=== PATIENT | male | born 1945 | race Caucasian/White ===

== ENCOUNTER 2016-11-22 23:58 | Observation (INO) | payer MEDICARE ==
[~2016-11-22] VITALS: Ht 167.6 cm; Wt 86.5 kg
[2016-11-23] VITALS (15 sets, daily range): BP systolic 112–168; BP diastolic 58–94; PULSE 50–68; RESP 17–18; TEMP 98–98.8; O2SAT 97–99
[2016-11-23] MEDS ORDERED: SODIUM CHLORIDE 0.9% FLUSH 10 ML FLUSH IVF PRN ×2 (00:30→03:15)
[2016-11-23] MEDS ORDERED: SODIUM CHLOR 0.9% 1000 ML INJ 1,000 ML IV SCH (00:30)
[2016-11-23] MEDS ORDERED: ASPIRIN 81 MG CHEW TAB PO ONE (00:30)
[2016-11-23] MEDS: NITROGLYCERIN 0.4 MG SL 25 TABS/BTL SL SCH ×2 (00:31→00:36)
[2016-11-23 00:43] LABS: AUTOMATED NEUTROPHIL # 5.9 TH/MM3 (1.8-7.7); BASOPHIL % 0.4 % (0.0-2.0); EOSINOPHIL # 0.2 TH/MM3 (0-0.4); EOSINOPHIL % 2.5 % (0.0-4.0); HEMATOCRIT 42.7 % (39.0-51.0); HEMO FLAGS DIFF FINAL; LYMPH % 24.9 % (9.0-44.0); LYMPHOCYTE # 2.3 TH/MM3 (1.0-4.8); MEAN CELL VOLUME 87.3 FL (80.0-100.0); MEAN CORPUSCULAR HEMOGLOBIN 28.7 PG (27.0-34.0); MEAN CORPUSCULAR HGB CONC 32.8 % (32.0-36.0); MONO % 8.7 % (0.0-8.0); NEUT % 63.5 % (16.0-70.0); PLATELET COUNT 203 TH/MM3 (150-450); WHITE BLOOD COUNT 9.2 TH/MM3 (4.0-11.0)
--- NOTE | 2016-11-23 00:51 | PD ---
HPI Chief Complaint: Chest Pain Time Seen by Provider: 00:21 Travel History International Travel<30 days: Yes (today) Contact w/Intl Traveler<30days: Yes (today) Name of Country Traveled to: [place] Traveled to known affect area: Yes ([place]) History of Present Illness HPI 71-year-old male presents to the emergency department by private transportation the care of his daughter for evaluation of chest pain and epigastric pain. Patient has history of CAD with previous stent placement. 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 Patient is visiting here for one week with his daughter. Patient also has history of hypertension and diabetes. Patient rates pain as 7/10 in intensity. Patient reportedly took 3 sublingual nitroglycerin at home without relief. Patient last took aspirin in the morning 325 mg reportedly. Patient did not take aspirin just prior to arrival to the emergency department. Patient denies any abdominal surgery. Patient has undergone cardiac catheterization in the past. Patient is also had ultrasound of the abdominal aorta that was reportedly normal and has undergone upper endoscopy which is also reportedly normal. Pain does not radiate to the neck jaw back shoulder or arms. No reported associated symptoms of shortness of breath sweats nausea or vomiting. Patient is unable to identify exacerbating or alleviating factors. Patient initially felt like he had over eaten. Patient does not report any referred pain to the lower extremities and no lower extremity or upper extremity numbness tingling weakness swelling and no pleuritic pain. No personal history of family history of clotting disorder/DVT/PE. PFSH Past Medical History Narrative Medical CAD hypertension diabetes cardiac catheterization nursing notes reviewed no tobacco use Social History Tobacco Use: No Allergies-Medications (Allergen,Severity, Reaction): Coded Allergies: Penicillin (Verified Allergy, Severe, Itching, 11/23/16) Reported Meds & Prescriptions Reported Meds & Active Scripts Active Reported Nitrostat SL (Nitroglycerin) 0.4 Mg Subl 0.4 Mg SL DIRECTED PRN 1 tablet under the tongue as needed for chest pain. Repeat every 5 minutes for a total of 3 DOSES or call 911 if NO relief. Metoprolol Succinate ER 24 HR (Metoprolol Succinate) 25 Mg Tab 25 Mg PO DAILY Isosorbide Mononitrate ER (Isosorbide Mononitrate) 30 Mg Dong 30 Mg PO DAILY Clopidogrel (Clopidogrel Bisulfate) 75 Mg Tab 75 Mg PO DAILY Atorvastatin (Atorvastatin Calcium) 80 Mg Tab 80 Mg PO HS Aspirin 325 Mg Tab 325 Mg PO DAILY Metformin (Metformin HCl) 500 Mg Tab 500 Mg PO DAILY With a meal Doxazosin (Doxazosin Mesylate) 2 Mg Tab 2 Mg PO DAILY Losartan-Hydrochlorothiazide 100-25 Mg Tab 1 Tab PO DAILY Review of Systems Except as stated in HPI: all other systems reviewed are Neg Physical Exam Narrative GENERAL: Well-developed well-nourished male in no acute distress no respiratory distress SKIN: Warm and dry. HEAD: Atraumatic. Normocephalic. EYES: Pupils equal and round. No scleral icterus. No injection or drainage. ENT: No nasal bleeding or discharge. Mucous membranes pink and moist. NECK: Trachea midline. No JVD. CARDIOVASCULAR: Regular rate and rhythm. Radial and dorsalis pedis pulses 2+ to palpation. RESPIRATORY: No accessory muscle use. Clear to auscultation. Breath sounds equal bilaterally. GASTROINTESTINAL: Abdomen soft, non-tender, nondistended. Hepatic and splenic margins not palpable. MUSCULOSKELETAL: Extremities without clubbing, cyanosis, or edema. No obvious deformities. NEUROLOGICAL: Awake and alert. No obvious cranial nerve deficits. Motor grossly within normal limits. Five out of 5 muscle strength in the arms and legs. Normal speech. PSYCHIATRIC: Appropriate mood and affect; insight and judgment normal. Data Data Last Documented VS Vital Signs Date Time Temp Pulse Resp B/P Pulse Ox O2 Delivery O2 Flow Rate FiO2 11/23/16 02:28 58 18 159/80 99 Room Air 11/23/16 00:15 98.0 Orders Electrocardiogram (11/23/16 00:21) Basic Metabolic Panel (Bmp) (11/23/16 00:21) Ckmb (Isoenzyme) Profile (11/23/16 00:21) Complete Blood Count With Diff (11/23/16 00:21) Magnesium (Mg) (11/23/16 00:21) Prothrombin Time / Inr (Pt) (11/23/16 00:21) Act Partial Throm Time (Ptt) (11/23/16 00:21) Troponin I (11/23/16 00:21) Lipase (11/23/16 00:21) Chest, Single Ap (11/23/16 00:21) Ecg Monitoring (11/23/16 00:21) Bilateral Bp Monitoring (11/23/16 00:21) Iv Access Insert/Monitor (11/23/16 00:21) Oximetry (11/23/16 00:21) Oxygen Administration (11/23/16 00:21) Aspirin Chew (Aspirin Chew) (11/23/16 00:30) Sodium Chloride 0.9% Flush (Ns Flush) (11/23/16 00:30) Nitroglycerin Sl (Nitrostat Sl) (11/23/16 00:30) Sodium Chlor 0.9% 1000 Ml Inj (Ns 1000 M (11/23/16 00:30) CKMB (11/23/16 00:20) CKMB% (11/23/16 00:20) Ondansetron Inj (Zofran Inj) (11/23/16 01:15) Hydromorphone Pf Inj (Dilaudid Pf Inj) (11/23/16 01:15) Cta Thor Abd Aorta W Iv C W3d (11/23/16 ) Iohexol 350 Inj (Omnipaque 350 Inj) (11/23/16 02:27) Admit Order (Ed Use Only) (11/23/16 ) ^ Saline Lock (11/23/16 03:06) Resp Oxygen Darren C Titrat 1-4 L (11/23/16 ) ^ Notify Dr: Other (11/23/16 03:06) Sodium Chloride 0.9% Flush (Ns Flush) (11/23/16 09:00) Sodium Chloride 0.9% Flush (Ns Flush) (11/23/16 03:15) Place In Observation (11/23/16 03:06) Activity Bed Rest With Brp (11/23/16 03:06) Vital Signs (Adult) Q4H (11/23/16 03:06) Cardiac Rhythm .As Directed (11/23/16 03:06) ^ Notify Dr: Other .PRN (11/23/16 03:06) ^ Notify Dr. Parameters (11/23/16 03:06) Resp Oxygen Nasal Cannula (11/23/16 ) Diet Npo (11/23/16 Breakfast) Ckmb (Isoenzyme) Profile (11/23/16 03:06) Ckmb (Isoenzyme) Profile (11/23/16 06:06) Troponin I (11/23/16 03:06) Troponin I (11/23/16 06:06) Electrocardiogram (11/23/16 03:06) Electrocardiogram (11/23/16 06:06) ^ Obtain (11/23/16 03:06) Sodium Chloride 0.9% Flush (Ns Flush) (11/23/16 03:15) Sodium Chloride 0.9% Flush (Ns Flush) (11/23/16 09:00) Cap Lining Machine Operator / Telemetry [id number].[id number] (11/23/16 03:06) Potassium Chloride (Kcl) (11/23/16 03:15) CKMB (11/23/16 03:27) CKMB% (11/23/16 03:27) Labs Laboratory Tests Test 11/23/16 00:20 White Blood Count 9.2 TH/MM3 Red Blood Count 4.90 MIL/MM3 Hemoglobin 14.0 GM/DL Hematocrit 42.7 % Mean Corpuscular Volume 87.3 FL Mean Corpuscular Hemoglobin 28.7 PG Mean Corpuscular Hemoglobin 32.8 % Concent Red Cell Distribution Width 13.0 % Platelet Count 203 TH/MM3 Mean Platelet Volume 8.0 FL Neutrophils (%) (Auto) 63.5 % Lymphocytes (%) (Auto) 24.9 % Monocytes (%) (Auto) 8.7 % Eosinophils (%) (Auto) 2.5 % Basophils (%) (Auto) 0.4 % Neutrophils # (Auto) 5.9 TH/MM3 Lymphocytes # (Auto) 2.3 TH/MM3 Monocytes # (Auto) 0.8 TH/MM3 Eosinophils # (Auto) 0.2 TH/MM3 Basophils # (Auto) 0.0 TH/MM3 CBC Comment DIFF FINAL Differential Comment Prothrombin Time 10.4 SEC Prothromb Time International 0.9 RATIO Ratio Activated Partial 26.2 SEC Thromboplast Time Sodium Level 140 MEQ/L Potassium Level 3.2 MEQ/L Chloride Level 99 MEQ/L Carbon Dioxide Level 33.2 MEQ/L Anion Gap 8 MEQ/L Blood Urea Nitrogen 20 MG/DL Creatinine 1.40 MG/DL Estimat Glomerular Filtration 50 ML/MIN Rate Random Glucose 118 MG/DL Calcium Level 9.0 MG/DL Magnesium Level 2.1 MG/DL Total Creatine Kinase 207 U/L Creatine Kinase MB 4.0 NG/ML Troponin I LESS THAN 0.02 NG/ML Lipase 241 U/L MDM Medical Decision Making Medical Screen Exam Complete: Yes Emergency Medical Condition: Yes Medical Record Reviewed: Yes Interpretation(s) EKG: Sinus bradycardia rate [address] elevation or injury pattern change noted Q wave noted inferiorly in lead 3 and aVF CBC & BMP Diagram 11/23/16 00:20 Last Impressions Chest X-Ray 11/23/16 0021 Signed Impressions: Service Date/Time: Saturday, November 23, 2016 00:51 - CONCLUSION: No acute cardiopulmonary abnormality is identified. Tony Fletcher MD troponin I: less than 0.02, not elevated; CK: 207, not elevatedMB% 1.9% not elevated coags: wnl Differential Diagnosis Chest pain, ACS, CT, PE, aortic dissection, pneumonia, musculoskeletal pain, biliary colic, choledocholithiasis, peptic ulcer disease, pancreatitis Narrative Course Patient placed on siebel developer IV access obtained specimens collected and sent for resulting EKG performed which reveals sinus bradycardia no acute ST elevation or injury pattern change noted Q wave noted inferiorly in lead 3 and aVF patient administered aspirin 162 mg by mouth along with supplemental nitroglycerin. Patient had reportedly taken 3 sublingual nitroglycerin glycerin at home without change in symptoms. At 1:10 AM patient denies any chest discomfort or chest pain continues to complain of abdominal pain; 7 no nitroglycerin had no effect on abdominal pain which she rates 7/10 in intensity. Patient administered Zofran 4 mg IV along with Dilaudid 0.[address] abdomen and pelvis ordered. Physician Communication Physician Communication case discussed with [facility] service Diagnosis Primary Impression: Chest pain Gracie Delcid MD Nov 23, 2016 00:51
[2016-11-23 00:53] LABS: CHLORIDE 99 MEQ/L (98-107); POTASSIUM 3.2 MEQ/L (3.5-5.1); SODIUM (NA) 140 MEQ/L (136-145)
[2016-11-23 00:56] LABS: ANION GAP 8 MEQ/L (5-15); BICARBONATE 33.2 MEQ/L (21.0-32.0); BLOOD UREA NITROGEN 20 MG/DL (7-18); MAGNESIUM 2.1 MG/DL (1.5-2.5)
[2016-11-23 00:58] LABS: APTT (PATIENT) 26.2 SEC (24.3-30.1); INTERNATIONAL NORMALIZED RATIO 0.9 RATIO; PROTHROMBIN TIME - PATIENT 10.4 SEC (9.8-11.6)
[2016-11-23 00:59] LABS: GLOMERULAR FILTRATION RATE 50 ML/MIN (>89)
[2016-11-23 01:02] LABS: CREATINE KINASE 207 U/L (39-308)
--- NOTE | 2016-11-23 01:04 | RADHPO ---
EXAM DATE/TIME: 11/23/2016 00:51 [facility] COMPARISON: No previous studies available for comparison. INDICATIONS : Chest and abdominal pain starting today MEDICAL HISTORY : None. SURGICAL HISTORY : None. ENCOUNTER: Initial ACUITY: 1 day PAIN SCORE: 7/10 LOCATION: Bilateral chest FINDINGS: Portable AP view of the chest demonstrates a normal-sized cardiac silhouette. No effusion, consolidat ion, or pneumothorax is visualized. The bones and soft tissues demonstrate no acute abnormality. CONCLUSION: No acute cardiopulmonary abnormality is identified. Tony Fletcher MD on November 23, 2016 at 1:02 Board Certified Radiologist. This report was verified electronically.
[2016-11-23] MEDS ORDERED: LOSA100T2 PO (01:07)
[2016-11-23] MEDS ORDERED: ATOR1TAB18 PO (01:07)
[2016-11-23] MEDS ORDERED: CLOP75TA PO (01:07)
[2016-11-23] MEDS ORDERED: METF500T PO (01:07)
[2016-11-23] MEDS ORDERED: METO25TA6 PO (01:07)
[2016-11-23] MEDS ORDERED: ISOS30TA3 PO (01:07)
[2016-11-23] MEDS ORDERED: ASPI325T PO (01:07)
[2016-11-23] MEDS ORDERED: NITR0.4S SL (01:07)
[2016-11-23] MEDS ORDERED: DOXA1TAB35 PO (01:07)
[2016-11-23] MEDS: ONDANSETRON HCL 4 MG/2 ML VIAL IV PUSH ONE ×2 (01:15→01:29)
[2016-11-23] MEDS: HYDROmorphone HCL PF 1 MG/ML VIAL IV PUSH ONE ×2 (01:15→01:30)
[2016-11-23] MEDS ORDERED: IOHEXOL 350 MG/ML 10 ML VIAL (for RAD DIAG) IV ONE (02:27)
--- NOTE | 2016-11-23 02:36 | RADHPO ---
EXAM DATE/TIME: 11/23/2016 01:47 [facility] COMPARISON: CHEST SINGLE AP, November 23, 2016, 0:51. INDICATIONS : Chest pain. Evaluate for aortic dissection. IV CONTRAST: 100 cc Omnipaque 350 (iohexol) IV RADIATION DOSE: 20.45 CTDIvol (mGy) MEDICAL HISTORY : Hypertension. Diabetes mellitus type 2. Carcinoma, prostate. SURGICAL HISTORY : None. ENCOUNTER: Initial ACUITY: 1 day PAIN SCALE: 6/10 LOCATION: Bilateral chest TECHNIQUE: Volumetric scanning was performed using a multi-row detector CT scanner. The data was post processed with a variety of visualization algorithms including full volume maximum intensity projection, multi -planar sliding thin slab reformation, curved planar reformation, and surface rendering techniques. Using automated exposure control and adjustment of the mA and/or kV according to patient size, radiat ion dose was kept as low as reasonably achievable to obtain optimal diagnostic quality images. FINDINGS: LUNGS: There is no consolidation or pneumothorax. No concerning pulmonary nodule is visualized. No pleural fluid is present. MEDIASTINUM: No abnormally enlarged lymph nodes by CT criteria. No axillary or hilar abnormalities are identified. ABDOMEN: The liver, adrenal glands, kidneys, spleen, and pancreas demonstrate no acute finding. There are 3 lo w-density lesions in the right kidney ranging in size from 9 mm up to 3.4 cm. All 3 lesions have dens ity measurements characteristic of cysts. There is sigmoid diverticulosis. PELVIS: No evidence of free fluid or pelvic mass. No abnormally enlarged inguinal or retroperitoneal lymph no chris are present. The bladder is unremarkable. There are brachytherapy seeds in the prostate gland. THORACIC AORTA: The thoracic aortic root is normal with normal branching of the great vessels. There is no evidence of aneurysm or dissection. ABDOMINAL AORTA: The aorta is normal in caliber without aneurysm or dissection. The renal arteries are patent bilater ally. The proximal celiac and superior mesenteric arteries are patent and normal in diameter. PELVIC VESSELS: The internal iliac and external iliac vessels are patent without aneurysm or stenosis. CONCLUSION: 1. Mild atherosclerotic disease. No aneurysm or dissection is present. 2. Nonacute findings include sigmoid diverticulosis and right renal cysts. Tony Fletcher MD on November 23, 2016 at 2:30 Board Certified Radiologist. This report was verified electronically.
[2016-11-23] MEDS ORDERED: SODIUM CHLORIDE 0.9% FLUSH 10 ML FLUSH IV FLUSH PRN (03:15)
[2016-11-23] MEDS ORDERED: POTASSIUM CHLORIDE 20 MEQ CONTROLLED RELEASE TAB PO ONE (03:15)
[2016-11-23] MEDS ORDERED: HYDROmorphone HCL PF 1 MG/ML VIAL IV PUSH PRN (03:15)
[2016-11-23 03:56] LABS: CREATINE KINASE 165 U/L (39-308)
[2016-11-23 04:08] LABS: CKMB 3.5 NG/ML (0.5-3.6)
[2016-11-23 06:26] LABS: CREATINE KINASE 140 U/L (39-308)
[2016-11-23 06:38] LABS: CKMB 2.7 NG/ML (0.5-3.6)
[2016-11-23] MEDS ORDERED: ISOSORBIDE MONONITRATE 30 MG TAB PO SCH (07:00)
[2016-11-23] MEDS ORDERED: METOPROLOL SUCCINATE 25 MG EXTENDED RELEASE TAB PO SCH (09:00)
[2016-11-23] MEDS ORDERED: LOSARTAN 50 MG TAB PO SCH (09:00)
[2016-11-23] MEDS ORDERED: NON-FORMULARY DRUG (Losartan-Hydrochlorothiazide 1 TAB) PO SCH (09:00)
[2016-11-23] MEDS ORDERED: ASPIRIN 325 MG TAB PO SCH (09:00)
[2016-11-23] MEDS ORDERED: SODIUM CHLORIDE 0.9% FLUSH 10 ML FLUSH IV FLUSH SCH ×2 (09:00)
[2016-11-23] MEDS ORDERED: DOXAZOSIN MESYLATE 1 MG TAB PO SCH (09:00)
[2016-11-23] MEDS ORDERED: CLOPIDOGREL 75 MG TAB PO SCH (09:00)
[2016-11-23] MEDS ORDERED: DOXAZOSIN MESYLATE 2 MG TAB PO SCH (09:00)
[2016-11-23] MEDS ORDERED: HYDROCHLOROTHIAZIDE 25 MG TAB PO SCH (09:00)
[2016-11-23 13:44] LABS: POTASSIUM 3.7 MEQ/L (3.5-5.1)
--- NOTE | 2016-11-23 13:46 | HHI.HP ---
[facility] Non-Staff Admission Diagnosis chest pain Diagnoses: (1) Chest pain Diagnosis: Principal (2) Coronary artery disease Diagnosis: Secondary (3) Hypertension Diagnosis: Secondary (4) Hyperlipidemia Diagnosis: Secondary (5) Diabetes Diagnosis: Secondary Chief Complaint: Shortness of breath Travel History International Travel<30 Days: Yes Contact w/Intl Traveler <30 Da: [place] Traveled to: [place] Traveled to Known Affected Are: No History of Present Illness 71-year-old [place] male who is here visiting his daughter helping her move with known history of hypertension, hyponatremia, coronary artery disease with stenting, diabetes who presented to hospital because of shortness of breath. 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 Patient has not had any formal stress testing in over one year. His have history coronary disease with stenting. Patient was helping his daughter and he drank a 20 ounce beer last evening and got short of breath. Because of shortness of breath he came to the hospital for evaluation. Patient indicates that he did have some epigastric discomfort associated with his shortness of breath. They're concerned that it was related to his heart so they came the hospital for evaluation. Patient denies any actual chest pain, no radiation of pain to the neck, back, shoulder, arm. Denies any nausea, vomiting, diaphoresis , dizziness, lightheadedness. Patient was evaluated in emergency department physician and the patient was recommended observation chest pain center. Review of Systems Constitutional: DENIES: Diaphoretic episodes, Fatigue, Fever, Weight gain, Weight loss, Chills, Dizziness, Change in appetite, Night Sweats Eyes: DENIES: Blurred vision, Diplopia, Eye inflammation, Eye pain, Vision loss , Double Vision Ears, nose, mouth, throat: DENIES: Vertigo, Nasal discharge, Throat pain, Ear Pain, Running Nose, Sinus Pain Respiratory: COMPLAINS OF: Shortness of breath, DENIES: Apneas, Cough, Snoring , Wheezing, Hemoptysis, Sputum production Cardiovascular: DENIES: Chest pain, Palpitations, Syncope, Dyspnea on Exertion , Lower Extremity Edema, Orthopnea Gastrointestinal: COMPLAINS OF: Abdominal pain, DENIES: Black stools, Bloody stools, Constipation, Diarrhea, Nausea, Vomiting, Difficulty Swallowing, Anorexia Neurologic: DENIES: Abnormal gait, Headache, Localized weakness, Paresthesias, Seizures, Speech Problems, Tremor, Poor Balance Psychiatric: DENIES: Anxiety, Confusion, Mood changes, Depression Past Family Social History Past Medical History Hypertension Hyperlipidemia Coronary artery disease Diabetes History of prostate cancer Past Surgical History Cardiac catheterization with 1 stent placement Prostatic seed placement Reported Medications Reported Meds & Active Scripts Active Reported Nitrostat SL (Nitroglycerin) 0.4 Mg Subl 0.4 Mg SL DIRECTED PRN 1 tablet under the tongue as needed for chest pain. Repeat every 5 minutes for a total of 3 DOSES or call 911 if NO relief. Metoprolol Succinate ER 24 HR (Metoprolol Succinate) 25 Mg Tab 25 Mg PO DAILY Isosorbide Mononitrate ER (Isosorbide Mononitrate) 30 Mg Dong 30 Mg PO DAILY Clopidogrel (Clopidogrel Bisulfate) 75 Mg Tab 75 Mg PO DAILY Atorvastatin (Atorvastatin Calcium) 80 Mg Tab 80 Mg PO HS Aspirin 325 Mg Tab 325 Mg PO DAILY Metformin (Metformin HCl) 500 Mg Tab 500 Mg PO DAILY With a meal Doxazosin (Doxazosin Mesylate) 2 Mg Tab 2 Mg PO DAILY Losartan-Hydrochlorothiazide 100-25 Mg Tab 1 Tab PO DAILY Allergies: Coded Allergies: Penicillin (Verified Allergy, Severe, Itching, 11/23/16) Family History Is significant for cancer Social History Patient quit smoking 20 years ago, prior to that he smoked up to 3 pack a cigarettes a day since he was 14 years old. Patient does use alcohol occasionally. Denies any illicit drugs Physical Exam Vital Signs Vital Signs Date Time Temp Pulse Resp B/P Pulse Ox O2 Delivery O2 Flow Rate FiO2 11/23/16 11:35 98 21 11/23/16 10:41 50 11/23/16 10:00 98.8 50 18 152/74 98 11/23/16 09:06 52 18 130/58 98 Room Air 11/23/16 07:17 98.0 55 18 145/65 98 Room Air 11/23/16 07:09 56 11/23/16 04:41 98 11/23/16 04:10 59 17 112/94 98 Room Air 11/23/16 03:36 98.0 56 18 168/67 98 Room Air 11/23/16 02:28 58 18 159/80 99 Room Air 11/23/16 01:17 18 11/23/16 01:10 54 143/80 97 151/66 11/23/16 00:39 135/61 11/23/16 00:31 56 18 142/70 11/23/16 00:20 97 Room Air 11/23/16 00:20 97 Room Air 11/23/16 00:20 145/75 161/77 11/23/16 00:15 98.0 68 18 143/68 98 Room Air 11/23/16 00:15 98 Room Air Physical Exam GENERAL: Well-developed, well-nourished, in no acute distress. alert and orientated HEENT: Head is normocephalic without any lesions or masses noted. Facial features are symmetric. Eyes: Pupils equal round reactive to light. Extraocular muscles are intact. Conjunctivae were clear. Oropharyngeal: Pharynx without any erythema edema. Tongue is midline without deviation. Buccal mucosa is moist without any masses or lesions NECK: Supple without any masses. Trachea midline no deviation. No JVD, no bruits are appreciated CARDIAC: Regular rhythm, regular rate. S1/S2 are heard. No murmurs gallops or rubs. LUNGS: Clear to auscultation bilaterally. No wheeze, rhonchi or rales. No use of accessory muscles on inspiration or expiration. ABDOMEN: Soft, nontender. Nondistended. Bowel sounds heard in all 4 quadrants. No organomegaly or masses. Negative rebound, negative guarding EXTREMITIES: No edema, pulses are equal bilaterally. No cyanosis or clubbing NEUROLOGY: Mood and affect appear appropriate. Cranial nerves II through XII grossly intact. Muscle strength 5/5 in upper and lower extremities bilaterally. Deep tendon reflexes are 2+ in upper and lower extremities bilaterally. Laboratory Laboratory Tests Test 11/23/16 11/23/16 11/23/16 00:20 03:27 06:00 White Blood Count 9.2 Red Blood Count 4.90 Hemoglobin 14.0 Hematocrit 42.7 Mean Corpuscular Volume 87.3 Mean Corpuscular Hemoglobin 28.7 Mean Corpuscular Hemoglobin 32.8 Concent Red Cell Distribution Width 13.0 Platelet Count 203 Mean Platelet Volume 8.0 Neutrophils (%) (Auto) 63.5 Lymphocytes (%) (Auto) 24.9 Monocytes (%) (Auto) 8.7 Eosinophils (%) (Auto) 2.5 Basophils (%) (Auto) 0.4 Neutrophils # (Auto) 5.9 Lymphocytes # (Auto) 2.3 Monocytes # (Auto) 0.8 Eosinophils # (Auto) 0.2 Basophils # (Auto) 0.0 CBC Comment DIFF FINAL Differential Comment Prothrombin Time 10.4 Prothromb Time International 0.9 Ratio Activated Partial 26.2 Thromboplast Time Sodium Level 140 Potassium Level 3.2 Chloride Level 99 Carbon Dioxide Level 33.2 Anion Gap 8 Blood Urea Nitrogen 20 Creatinine 1.40 Estimat Glomerular Filtration 50 Rate Random Glucose 118 Calcium Level 9.0 Magnesium Level 2.1 Total Creatine Kinase 207 165 140 Creatine Kinase MB 4.0 3.5 2.7 Troponin I LESS THAN 0.02 LESS THAN 0.02 LESS THAN 0.02 Lipase 241 D-Dimer Quantitative (PE/DVT) LESS THAN 0.19 Result Diagram: 11/23/16 0020 11/23/16 0020 Imaging Last Impressions Chest X-Ray 11/23/16 0021 Signed Impressions: Service Date/Time: Wednesday, November 23, 2016 00:51 - CONCLUSION: No acute cardiopulmonary abnormality is identified. Tony Fletcher MD Aorta CTA 11/23/16 0000 Signed Impressions: Service Date/Time: Wednesday, November 23, 2016 01:47 - CONCLUSION: 1. Mild atherosclerotic disease. No aneurysm or dissection is present. 2. Nonacute findings include sigmoid diverticulosis and right renal cysts. Tony Fletcher MD Assessment and Plan Assessment and Plan Angina equivalent with shortness of breath, abdominal pain. Patient with increased risk factors to include age, hypertension, hyperlipidemia, diabetes, coronary artery disease. Patient ruled out for any acute coronary event with serial cardiac enzymes which are negative, serial EKGs did not indicate any changes. Nuclear stress test was performed which did not indicate any underlying ischemia. Hypertension, hyperlipidemia, coronary artery disease: Continue home medications. Continue hold blood pressure medication for low blood pressure or bradycardia Diabetes: Continue home medications DVT prevention: Low risk, early ambulation Written by Alexis Godwin PA-C, acting as scribe for Dr. Carrion on 11/23/16 at 1640. The documentation accurately reflects the work and decisions performed face-to- face by Dr. Carrion on 11/23/16 at 1640. Discharge disposition Discharge home in stable condition if stress test is negative Activity: Ad radha. Diet: Healthy heart diet Medications per medication reconciliation Follow-up primary medical doctor in one week Discussed Condition With All or portions of this note were transcribed by crystal Godwin. I, Dr. Amanda Carrion personally performed the history, physical exam, and medical decision making; and confirmed the accuracy of the information in the transcribed note. Problem Qualifiers (1) Chest pain: Qualified Code: R07.9 - Chest pain, unspecified type (2) Coronary artery disease: Qualified Code: I25.10 - Coronary artery disease, angina presence unspecified, unspecified vessel or lesion type, unspecified whether [place] or transplanted heart (3) Hypertension: Qualified Code: I15.9 - Secondary hypertension (4) Hyperlipidemia: Qualified Code: E78.5 - Hyperlipidemia, unspecified hyperlipidemia type (5) Diabetes: Qualified Code: E11.8 - Type 2 diabetes mellitus with complication, without long-term current use of insulin Alexis Godwin Nov 23, 2016 13:46 Amanda Carrion MD Nov 23, 2016 18:03
[2016-11-23 13:47] LABS: BICARBONATE 31.7 MEQ/L (21.0-32.0)
[2016-11-23] MEDS ORDERED: REGADENOSON INJ 0.4 MG/5 ML SYR IV ONE (14:23)
--- NOTE | 2016-11-23 15:43 | RADHPO ---
EXAM DATE/TIME: 11/23/2016 14:56 [facility] COMPARISON: No previous studies available for comparison. INDICATIONS : Substernal chest pain with dyspnea and prior cardiac stenting. Angina. Coronary artery disease. DOSE: 25.4 mCi Tc99m Myoview at stress. 8.5 mCi Tc99m Myoview at rest. 0.4 mg Lexiscan STRESS SYMPTOMS: Dyspnea. EJECTION FRACTION: 65% MEDICAL HISTORY : Hypertension. Diabetes mellitus type 2. Carcinoma, prostate. SURGICAL HISTORY : Coronary artery stent. Prostate seeds. ENCOUNTER: Initial ACUITY: 1 day PAIN SCALE: 6/10 LOCATION: Substernal chest TECHNIQUE: The patient underwent pharmacologic stress with infusion of prescribed dose. Continuous ECG tracing was monitored during stress. Gated SPECT imaging was performed after stress and conventional SPECT i maging was performed at rest. The examination was performed on a SPECT/CT scanner, both attenuation and non-corrected datasets were reviewed. FINDINGS: DISTRIBUTION: The maximum perfused segment at stress is in the septal wall. PERFUSION STUDY: The pattern of perfusion at stress is within normal limits. GATED STUDY: There is intact wall motion and thickening without hypokinetic or dyskinetic segments. CONCLUSION: 1. Unremarkable myocardial perfusion scan. RISK CATEGORY: Low (<1% Annual Mortality Rate) Nathan Childers MD on November 23, 2016 at 15:41 Board Certified Radiologist. This report was verified electronically.
--- NOTE | 2016-11-23 16:37 | HHI.DCPOC ---
Discharge Care Plan Diagnosis: (1) Chest pain Goals to Promote Your Health * To prevent worsening of your condition and complications * To maintain your health at the optimal level Directions to Meet Your Goals Take your medications as prescribed Follow your dietary instruction Follow activity as directed Keep your appointments as scheduled Take your immunizations and boosters as scheduled If your symptoms worsen call your PCP, if no PCP go to Urgent Care Center or Emergency Room Smoking is Dangerous to Your Health. Avoid second hand smoke Call the 24-hour hour crisis hotline for domestic abuse at Alexis Godwin Nov 23, 2016 16:37
--- NOTE | 2016-11-23 16:44 | EKG ---
Date Performed: 11/23/2016 Time Performed: 03:11:58 PTAGE: 71 years EKG: Sinus rhythm Inferior infarct - age undetermined Compared to prior tracing no significant change Abnormal ECG PREVIOUS TRACING : 11/23/2016 00.02 DOCTOR: Lizandro Reyna Interpretating Date/Time 11/23/2016 16:43:20
--- NOTE | 2016-11-23 16:44 | EKG ---
Date Performed: 11/23/2016 Time Performed: 00:02:40 PTAGE: 71 years EKG: Sinus bradycardia Normal ECG except for rate NO PREVIOUS TRACING DOCTOR: Lizandro Reyna Interpretating Date/Time 11/23/2016 16:43:03
--- NOTE | 2016-11-23 16:45 | EKG ---
Date Performed: 11/23/2016 Time Performed: 06:01:20 PTAGE: 71 years EKG: Sinus bradycardia Possible inferior infarct - age undetermined Compared to prior tracing no significant change Abnormal ECG PREVIOUS TRACING : 11/23/2016 03.11 DOCTOR: Lizandro Reyna Interpretating Date/Time 11/23/2016 16:43:33
[2016-11-23] MEDS ORDERED: ATORVASTATIN 40 MG TAB PO SCH (21:00)
--- NOTE | 2016-11-24 15:04 | TR ---
Date Performed: 11/23/2016 Time Performed: 14:59:05 DOCTOR: [facility] DRUG LIST: CLINICAL HISTORY: CHEST PAIN REASON FOR TEST: Chest pain REASON FOR ENDING: OBSERVATION: CONCLUSION: Lexiscan stress test was performed under standard four minute protocol. Radionuclide was injected one minute prior to ending the test. Developed dyspnea, systolic blood pressure was mil dly elevated. No electrocardiographic abnormalities were present to suggest ischemia. Recovery was qu ick and uneventful with resolution of dyspnea, systolic blood pressure remained mildly elevated. Nucl ear imaging and interpretation are pending. COMMENTS:
== END 2016-11-23 17:57 | disposition home or self-care (01) ==
LOC: PHED 23:58 → PHEDA 11-23 03:08 → PHEDH 11-23 08:26 → PH3A 11-23 09:56
PROVIDERS: ADMIT Family Medicine; ATTEND Family Medicine
DX: R07.9 Chest pain, unspecified (principal); R06.02 Shortness of breath; R10.9 Unspecified abdominal pain; I10 Essential (primary) hypertension; E78.5 Hyperlipidemia, unspecified; E11.9 Type 2 diabetes mellitus without complications; I25.10 Atherosclerotic heart disease of native coronary artery without angina pectoris; Z95.5 Presence of coronary angioplasty implant and graft; Z85.46 Personal history of malignant neoplasm of prostate; Z79.02 Long term (current) use of antithrombotics/antiplatelets; Z79.82 Long term (current) use of aspirin; Z79.84 Long term (current) use of oral hypoglycemic drugs; Z88.0 Allergy status to penicillin; Z87.891 Personal history of nicotine dependence
CPT/HCPCS: 71010; 71275; 74174; 78452; 80048; 82550; 82552; 83690; 83735; 83880; 84484; 85025; 85379; 85610; 85730; 93005; 93017; 96360; 99285; A9502; G0378; J2785; J7030; Q9967; J1170; J2405